=== PATIENT | female | born 1970 | race Caucasian/White ===

== ENCOUNTER 2017-11-27 10:53 | Day surgery (SDC) | payer OTHER, BC ==
[~2017-11-27] VITALS: Ht 165.1 cm; Wt 69.5 kg
[~2017-11-27 10:53] MED LIST: CHOL200024 PO; FLUO20TA25 PO; HYDR200T72 PO
[2017-11-27] MEDS ORDERED: LACTATED RINGERS 1,000 ML IV SCH (11:26)
[2017-11-27] MEDS ORDERED: PLEASE ENTER HEIGHT AND WEIGHT MC SCH (11:30)
[2017-11-27 11:33] VITALS: BP 106/69
[2017-11-27 12:16] LABS: HCG UR SG 1.024 (1.003-1.030)
[2017-11-27] MEDS ORDERED: PROPOFOL 10 MG/ML, 50ML ONE (12:21)
[2017-11-27] MEDS ORDERED: ONDANSETRON ODT 8 MG PO PRN (12:30)
[2017-11-27] MEDS ORDERED: ALBUTEROL/IPRATROPIUM 2.5MG/0.5MG, 3 ML NPPB PRN (12:30)
[2017-11-27] MEDS ORDERED: LABETALOL 5MG/ML, 20ML IV PRN (12:30)
[2017-11-27] MEDS ORDERED: FENTANYL PF 100 MCG/2ML IV PRN (12:30)
[2017-11-27] MEDS ORDERED: OXYcodone 5 MG/5 ML ORAL.SOL UDC PO PRN (12:30)
[2017-11-27] MEDS ORDERED: EPHEDRINE 50 MG/ML, 1ML IM PRN (12:30)
[2017-11-27] MEDS ORDERED: MIDAZOLAM 1 MG/ML, 2ML IV PRN (12:30)
[2017-11-27] MEDS ORDERED: PROMETHAZINE 25 MG/ML, 1ML IV PRN (12:30)
[2017-11-27] MEDS ORDERED: ACETAMINOPHEN 325 MG TABLET PO PRN (12:30)
== END 2017-11-27 14:55 ==
LOC: OUT 10:53
PROVIDERS: ATTEND Internal Medicine Geriatric Medicine
DX: K31.89 Other diseases of stomach and duodenum (principal); K86.9 Disease of pancreas, unspecified; F41.9 Anxiety disorder, unspecified; Z87.39 Personal history of other diseases of the musculoskeletal system and connective tissue; Z98.890 Other specified postprocedural states
CPT/HCPCS: 43239; 43242; 81025; 88172; 88173; 88305; 88307; J2704